=== PATIENT | male | born 1950 | race African-American/Black ===

== ENCOUNTER 2018-01-18 10:11 | Day surgery (SDC) | payer OTHER ==
[2018-01-17 12:33] VITALS: BMI 24.7
--- NOTE | 2018-01-18 12:20 | HP ---
History & Physical Update - History History: No Change - Physical Physical: No Change - Assessment Assessment: No Change - Plan Plan: No Change (no change since visit on 01/13/18)
[2018-01-18] MEDS ORDERED: PROPOFOL 20 ML ONE ×2 (12:21)
[2018-01-18] MEDS ORDERED: MIDAZOLAM HCL 2 MG/2 ML SINGLE DOSE VIAL ONE (12:21)
[2018-01-18] MEDS ORDERED: BUPIVACAINE HCL/PF 0.5% (5MG/ML) 10 ML VIAL ONE (12:24)
[2018-01-18] MEDS ORDERED: ceFAZolin SODIUM 1 GM VIAL IVPB ONE (12:39)
[2018-01-18] MEDS ORDERED: ceFAZolin SODIUM 1 GM VIAL ONE (12:39)
[2018-01-18] MEDS ORDERED: BUPIVACAINE HCL/PF (5 MG/ML) 30 ML VIAL IJ ONE ×2 (12:41)
[2018-01-18] MEDS ORDERED: DEXAMETHASONE SOD PHOSPHATE 4 MG/1 ML VIAL ONE (12:47)
[2018-01-18] MEDS ORDERED: ONDANSETRON 4 MG/2 ML VIAL ONE (12:47)
[2018-01-18] MEDS ORDERED: ONDANSETRON 4 MG/2 ML VIAL IVPUSH PRN (13:21)
[2018-01-18] MEDS ORDERED: oxyCODONE HCL 5 MG TABLET PO PRN (13:21)
[2018-01-18] MEDS ORDERED: LACTATED RINGERS SOLUTION 1,000 ML IV SCH (13:30)
--- NOTE | 2018-01-18 13:45 | OP ---
DATE OF OPERATION: 01/18/2018 PREOPERATIVE DIAGNOSIS: Umbilical hernia. POSTOPERATIVE DIAGNOSIS: Umbilical hernia. OPERATIVE PROCEDURE: Exploration in the direction of the umbilical hernia and primary repair. SURGEON: Brigida Robison MD BOTTLING LINE OPERATOR: MARIAH Olivares, I think. ANESTHESIA: Local sedation. DESCRIPTION OF PROCEDURE: Patient was brought to the operating room. Abdomen was prepped and draped in the usual manner. Local with Marcaine was injected, and the circumumbilical incision was made to identify the fascia which was open, and the hernia sac was identified which was put back into the abdominal cavity. Again, the abdominal fascia was then dissected above and below for a distance of about 2.5 to 3 cm, and then, [id number] kind of repair was done with overlapping and with 0 Prolene. Two layers were used to repair the hernial opening. Following which, the wound was irrigated with antibiotic solution, and subcutaneous tissue and skin were closed. The patient went to the recovery room in stable condition. BRIGIDA ROBISON M.D. [id number]
--- NOTE | 2018-01-18 13:50 | OP ---
Operative Note - Note: Operative Date: 01/18/18 Pre-Operative Diagnosis: Umbical hernia Operation: open umbical hernia repair Post-Operative Diagnosis: Same as Pre-op Surgeon: Molly Robison Eyeglass Inspector: Cristal Rehman Anesthesiologist/CHECK PILOT: Gita Bautista Anesthesia: Local (with sedatiojn) Estimated Blood Loss (mls): 10 Fluid Volume Replaced (mls): 700 Operative Report Dictated: Yes
--- NOTE | 2018-01-18 13:51 | SURG ---
Surgery Paying Teller Note Paying Teller: Cristal Rehman PA-C Date of Service: 01/18/18 Diagnosis: umbilical hernia Procedure: open umbilical hernia repair I was present for the entirety of the operative procedure. For further detail, please refer to operative report. Visit type - Case Type Case Type: Scheduled - Emergency Emergency Visit: No - New patient This patient is new to me today: Yes Date on this admission: 01/18/18
[2018-01-18 17:24] VITALS: BP 144/79; PULSE 67; TEMP 97.2
== END 2018-01-18 16:00 | disposition home or self-care (01) ==
LOC: JASU-SURG 10:11
PROVIDERS: ATTEND Surgery Vascular Surgery
PROC: 0WQF0ZZ Repair Abdominal Wall, Open Approach (ICD-10-PCS; principal; 2018-01-18 12:00)
DX: K42.9 Umbilical hernia without obstruction or gangrene (principal)
CPT/HCPCS: 82962; 94760